=== PATIENT | male | born 1960 | race Caucasian/White ===

== ENCOUNTER 2017-05-04 16:08 | Emergency (ER) | payer OTHER ==
[~2017-05-04] VITALS: Wt 111.4 kg
[~2017-05-04 16:08] MED LIST: ASPI81TA3 PO; ATEN-51 PO; BACL10TA PO; BUPR300T36 PO; DOXE25CA43 PO; FOLI-49 PO; LISI-523 PO; LOVA10TA63 PO; MULTI PO; Thiamine Hcl PO
--- NOTE | 2017-05-04 16:26 | ERD ---
ER Documentation Chief Complaint Date/Time DATE: 05/04/17 TIME: 16:23 Chief Complaint l. eye redness HPI 56-year-old male comes to emergency department with left eye redness that occurred spontaneously sometime this week. He states that his psychiatrist office yesterday and was told that his eye looks red, it had not bothered him, he did not have any vision changes, visual field deficits, or pain, headache or nausea vomiting. He denies eye discharge, trauma. Denies fevers or chills. He states that he spoke with his nurse practitioner over the phone about this and was advised to go to the emergency room for evaluation. ROS All systems reviewed and are negative except as per history of present illness. Medications Home Meds Active Scripts [Thiamine Hcl] 100 MG TAB No Conflict Check, 100 MG PO DAILY, #30 TAB Prov:KARIE PIERCE MD 10/14/15 Multivitamins* (Theragran*) 1 Tab Tab, 1 TAB PO DAILY, #30 TAB Prov:KARIE PIERCE MD 10/14/15 Lisinopril* (Zestril*) 5 Mg Tab, 10 MG PO DAILY, #30 TAB 1 Refill Prov:KARIE PIERCE MD 10/14/15 Reported Medications Baclofen* (Baclofen*) 10 Mg Tablet, 10 MG PO TID, TAB 10/12/15 Doxepin Hcl* (Doxepin Hcl*) 25 Mg Capsule, 25 MG PO HS, CAP 10/12/15 Folic Acid* (Folic Acid*) 1 Mg Tablet, 1 MG PO DAILY, TAB 10/12/15 Bupropion Hcl* (Bupropion XL*) 300 Mg Tab.sr.24h, 300 MG PO DAILY, TAB.SA 10/12/15 Aspirin* (Aspirin* Chew) 81 Mg Tab.chew, 81 MG PO DAILY, TAB.CHEW 08/08/14 Atenolol* (Atenolol*) 25 Mg Tablet, 50 MG PO DAILY, TAB 08/08/14 Lovastatin* (Lovastatin*) 10 Mg Tablet, 20 MG PO HS, TAB 08/08/14 Allergies Allergies: Coded Allergies: No Known Allergy (Unverified , 10/12/15) PMhx/Soc History of Surgery: Yes (FOOT SURGERY, HERNIA SURGERY) Anesthesia Reaction: No Hx Neurological Disorder: No Hx Respiratory Disorders: No Hx Cardiac Disorders: Yes (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 The patient appears in no acute distress. HEENT: Head is normocephalic, atraumatic. No scleral icterus. Extraocular movements intact, eyes are Dana. There is a subconjunctival hemorrhage on the left eye, there is no hyphema or hypopyon. There is no periorbital swelling. EOM without any pain. No drainage. Neck: Supple. Nontender. Lungs: Clear to auscultation. Normal air movement. Heart: Regular rate and rhythm. S1 and S2 are normal. No murmurs, gallops, or rubs. Abdomen: Nondistended. Extremities: No clubbing or cyanosis. Moving extremities x 4. No weakness. Neurologic: Alert and oriented 3. No focal deficits. Normal speech and gait. Skin: Normal turgor. No rash or lesions. Procedures/MDM 56-year-old male comes in with a subconjunctival hemorrhage of the left eye that occurred spontaneously. There is no evidence of infectious origin, fracture, entrapment, hyphema, hypopyon, acute angle-closure glaucoma, traumatic iritis, retinal detachment among others. There is evidence of a subconjunctival hemorrhage, that appears to be benign and self-limiting. Patient was advised to recheck with his primary care doctor within the next 3 days. Patient's blood pressure was elevated (>120/80) but appears stable without evidence of hypertension emergency or urgency. The patient was counseled about the risks of hypertension and urged to pursue outpatient monitoring and therapy within a week with their primary care physician. Departure Diagnosis: Primary Impression: Subconjunctival hemorrhage of left eye Condition: Good Patient Instructions: Subconjunctival Hemorrhage CASI SQUIRES PA-C May 04, 2017 16:25
== END 2017-05-04 16:20 | disposition home or self-care (01) ==
LOC: FTE 16:08 → E/R 16:20
DX: H11.32 Conjunctival hemorrhage, left eye (principal); I10 Essential (primary) hypertension; Z79.82 Long term (current) use of aspirin
CPT/HCPCS: 99282

== ENCOUNTER → 2019-02-22 | Outpatient (CLI) | payer OTHER ==
[~2019-02-22] MED LIST changes: +ASPI-903 PO; -ASPI81TA3 PO; -BUPR300T36 PO; +BUPR300T4 PO; +DOXE25CA2 PO; -DOXE25CA43 PO
== END | disposition home or self-care (01) ==
LOC: U/S 11:02
PROVIDERS: ATTEND Internal Medicine Hepatology
DX: K74.60 Unspecified cirrhosis of liver (principal)
CPT/HCPCS: 76700